=== PATIENT | male | born 1990 | race Caucasian/White ===

== ENCOUNTER 2017-03-29 10:03 | Emergency (ER) | payer BC ==
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
[2017-03-29] MEDS ORDERED: TETRACAINE HCL 0.5% OPH SOLN 2 ML OD ONE (11:03)
[2017-03-29] MEDS ORDERED: KETOROLAC TROMETHAMINE 0.45% 4 DROP/0.4 ML DROPERETTE OD ONE (11:15)
[2017-03-29 11:38] VITALS: BP 134/86
== END 2017-03-29 11:39 | disposition home or self-care (01) ==
LOC: ER 10:03
DX: S05.8X1A Other injuries of right eye and orbit, initial encounter (principal); X58.XXXA Exposure to other specified factors, initial encounter
CPT/HCPCS: 99283